=== PATIENT | male | born 1950 | race Caucasian/White ===

== ENCOUNTER 2017-01-20 16:48 | Observation (INO) | payer OTHER ==
[~2017-01-20] VITALS: Ht 177.8 cm; Wt 80.3 kg
[~2017-01-20 16:48] MED LIST: LISINOPRIL10 MG PO; PRAVASTATIN SOD80 MG PO
[2017-01-20 17:44] LABS: MCH 30.1 PG (29.0-34.0); MCHC 33.6 G/DL (30.0-36.0); MCV 89.6 FL (86-99); MEAN PLAT.VOLUME 10.5 uM^3 (9.0-12.4); PLATELET COUNT 188 K/uL (156-360); RBC DIS.WIDTH-CV 13.3 % (11.8-14.6); RBC DIS.WIDTH-SD 43.5 % (39-53); RED BLOOD COUNT 4.69 M/uL (4.00-5.50); WHITE BLOOD COUNT 7.2 K/uL (4.1-10.2)
[2017-01-20 17:58] LABS: CHLORIDE 106 mEq/L (99-109); POTASSIUM 3.8 mEq/L (3.7-5.4); SODIUM 140 mEq/L (136-147)
[2017-01-20 18:00] LABS: GLUCOSE 100 mg/dL (70-99)
[2017-01-20 18:01] LABS: ANION GAP 11 MEQ/L (2-14)
[2017-01-20 18:02] LABS: TOTAL BILIRUBIN 1.2 mg/dL (0.0-1.0)
[2017-01-20 18:04] LABS: ALKALINE PHOSPHATASE 58 IU/L (3-129); GFR ESTIMATE (CALCULATED) > 59 mL/min/
[2017-01-20 18:05] LABS: UREA NITROGEN (BUN) 16 mg/dL (9-23)
[2017-01-20 18:07] LABS: LIPASE 28 U/L (1.0-51.0)
[2017-01-20 19:34] LABS: ADD MIUA? NO; BILIRUBIN NEGATIVE; BLOOD NEGATIVE; COLOR YELLOW ((YELLOW)); GLUCOSE (STRIP) NEGATIVE; KETONES 20; LEUKOCYTES NEGATIVE; NITRITE NEGATIVE; PROTEIN (STRIP) NEGATIVE; UCUL ADDED? NO; UROBILINOGEN 0.2 MG/DL (0.2-1.0)
[2017-01-21 03:11] VITALS: BP 121/59
[2017-01-21 08:23] VITALS: BP 121/62
[2017-01-21 08:35] LABS: HEMATOCRIT 34.9 % (38.0-50.0); MCV 90.4 FL (86-99)
[2017-01-21 12:11] VITALS: BP 116/64
[2017-01-21 15:17] LABS: HEMATOCRIT 32.7 % (38.0-50.0); MCH 30.4 PG (29.0-34.0); MCHC 33.3 G/DL (30.0-36.0); MCV 91.1 FL (86-99); MEAN PLAT.VOLUME 11.2 uM^3 (9.0-12.4); PLATELET COUNT 139 K/uL (156-360); RBC DIS.WIDTH-CV 13.7 % (11.8-14.6); RBC DIS.WIDTH-SD 45.9 % (39-53); WHITE BLOOD COUNT 6.1 K/uL (4.1-10.2)
[2017-01-21 15:38] LABS: RED BLOOD COUNT 3.59 M/uL (4.00-5.50)
[2017-01-21 16:00] VITALS: BP 147/65
[2017-01-21 20:00] VITALS: BP 106/61
[2017-01-21 20:32] LABS: HEMATOCRIT 33.2 % (38.0-50.0); MCV 91.5 FL (86-99)
[2017-01-22 04:03] VITALS: BP 104/76
[2017-01-22 06:10] LABS: HEMATOCRIT 32.4 % (38.0-50.0); MCH 30.5 PG (29.0-34.0); MCHC 33.3 G/DL (30.0-36.0); MCV 91.5 FL (86-99); MEAN PLAT.VOLUME 11.3 uM^3 (9.0-12.4); PLATELET COUNT 134 K/uL (156-360); RBC DIS.WIDTH-CV 13.5 % (11.8-14.6); RBC DIS.WIDTH-SD 45.2 % (39-53); RED BLOOD COUNT 3.54 M/uL (4.00-5.50); WHITE BLOOD COUNT 5.5 K/uL (4.1-10.2)
[2017-01-22 08:13] VITALS: BP 127/73
[2017-01-22 11:52] VITALS: BP 131/71
[2017-01-25 11:56] LABS: POC NON-PRINT COM 1 ND
== END 2017-01-22 12:51 | disposition home or self-care (01) ==
LOC: EME 16:48 → EDOF 01-21 02:11 → 5WEST 01-21 02:46
PROVIDERS: Internal Medicine; Internal Medicine Gastroenterology; Physician Assistant
DX: K92.2 Gastrointestinal hemorrhage, unspecified (principal); R11.2 Nausea with vomiting, unspecified; R19.7 Diarrhea, unspecified; I10 Essential (primary) hypertension; E78.5 Hyperlipidemia, unspecified; Z87.891 Personal history of nicotine dependence
CPT/HCPCS: 74177; 80053; 81003; 82272; 83605; 83690; 85014; 85018; 85027; 87493; 87506; 93005; 99281; 99285; C9113; G0378; J1885; J2405; J3010; J7030